=== PATIENT | male | born 1975 | race Hispanic/Latino ===

== ENCOUNTER 2019-11-26 18:46 | Emergency (ER) | payer SELFPAY ==
[2019-11-26 19:02] VITALS: BP 144/91
[2019-11-26 19:41] LABS: Basophils # (Auto) 0.1 K/mm3 (0.0-0.1); Basophils % (Auto) 0.7 % (0.0-1.8); Eosinophils # (Auto) 0.2 K/mm3 (0.0-0.4); Eosinophils % (Auto) 2.2 % (0.0-4.3); Hematocrit 45.2 % (35.5-45.6); Lymphocytes # (Auto) 1.4 K/mm3 (1.2-5.4); Lymphocytes % (Auto) 13.9 % (13.4-35.0); Mean Corpuscular HGB Conc 33 % (32-34); Mean Corpuscular Volume 88 fl (84-94); Monocytes # (Auto) 0.8 K/mm3 (0.0-0.8); Monocytes % (Auto) 8.6 % (0.0-7.3); Platelet Count 283 K/mm3 (140-440); Red Blood Count 5.15 M/mm3 (3.65-5.03); Red Cell Distribution Width 13.3 % (13.2-15.2)
[2019-11-26 20:01] LABS: Alanine Aminotransferase 17 units/L (7-56); Albumin 4.8 g/dL (3.9-5); BUN/Creatinine Ratio 29; Blood Urea Nitrogen 26 mg/dL (9-20); Calcium 9.5 mg/dL (8.4-10.2); Hemolysis Index 18
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
== END 2019-11-26 21:51 | disposition home or self-care (01) ==
LOC: ED 18:46
DX: R07.9 Chest pain, unspecified (principal); F11.20 Opioid dependence, uncomplicated; F15.10 Other stimulant abuse, uncomplicated; F12.90 Cannabis use, unspecified, uncomplicated; Z98.890 Other specified postprocedural states; Z00.8 Encounter for other general examination; V49.49XA Driver injured in collision with other motor vehicles in traffic accident, initial encounter; Y92.410 Unspecified street and highway as the place of occurrence of the external cause; Y93.89 Activity, other specified; Y99.8 Other external cause status
CPT/HCPCS: 36415; 70450; 71260; 72125; 74177; 80053; 85025; 99284; Q9967; 80320; G0480